=== PATIENT | female | born 1980 | race Caucasian/White ===

== ENCOUNTER 2016-12-16 14:39 | Emergency (ER) | payer OTHER ==
[~2016-12-16] VITALS: Wt 61.0 kg
[2016-12-16] MEDS ORDERED: TRAM50TA2 PO (17:56)
--- NOTE | 2016-12-16 17:56 | RADRPT ---
PROCEDURE: XR Left Ankle. CLINICAL INDICATION: Left ankle pain. TECHNIQUE: 3 views. Frontal, lateral, and oblique. COMPARISON: None. FINDINGS: There is no fracture or dislocation. The soft tissues are normal. Articular surfaces are intact. There is no lytic or blastic lesion. There is no radiopaque foreign body. IMPRESSION: 1. Normal images of the left ankle. RPTAT: QQ .Hans Rico MD, MD Date Time Electronically viewed and signed by .Hans Rico MD, on 12/16/2016 17:56 .R/
--- NOTE | 2016-12-16 17:56 | RADRPT ---
PROCEDURE: XR Left Foot. CLINICAL INDICATION: Left foot pain. TECHNIQUE: Three views. Frontal, lateral, and oblique. COMPARISON: None. FINDINGS: There is no fracture or dislocation. The soft tissues are normal. Articular surfaces are intact. There is no lytic or blastic lesion. There is no radiopaque foreign body. IMPRESSION: 1. Normal images of the left foot. RPTAT: QQ .Hans Rico MD, MD Date Time Electronically viewed and signed by .Hans Rico MD, on 12/16/2016 17:56 .R/
--- NOTE | 2016-12-16 18:11 | ERD ---
ER Documentation Chief Complaint Date/Time DATE: 12/16/16 TIME: 18:08 Chief Complaint LEFT ANKLE PAIN FROM 1 WK INJURY FROM FALL. NO RELEIF WITH OTC MEDS HPI [age]-year-old female with no significant past mental history presents the ED complaining of left ankle pain that started 1 week ago from a mechanical fall. Denies any head or neck injuries. Denies any loss of consciousness. States that she gets no relief from mtkn-[id number] medications. States that she has been taking ibuprofen without relief. Reports that she went to [facility] 4 days ago and obtained a x-ray and was positive for a fracture however was negative yesterday when she went back to all of you. ROS All systems reviewed and are negative except as per history of present illness. Medications Home Meds Active Scripts Tramadol HCl (Tramadol HCl) 50 Mg Tablet, 50 MG PO Q4 Y for PAIN, #20 TAB Prov:NIELS IVEY PA-C 12/16/16 PMhx/Soc Medical and Surgical Hx: pt denies Medical Hx, pt denies Surgical Hx Hx Alcohol Use: No Hx Substance Use: No Hx Tobacco Use: No Physical Exam Vitals Vital Signs Date Time Temp Pulse Resp B/P Pulse Ox O2 Delivery O2 Flow Rate FiO2 12/16/16 14:43 98.9 100 20 122/78 98 Physical Exam Const: [id number], well-nourished. In no acute distress. Head: Atraumatic, normocephalic Eyes: Normal Conjunctiva without injection ENT: Normal external ear, nose and mouth. Neck: Full range of motion. No meningismus. Resp: Clear to auscultation bilaterally. No wheezing, rhonchi, rales, or crackles. No accessory muscle use. No retractions. Cardio: Regular rate and rhythm, no murmurs Skin: No petechiae or rashes Back: No midline tenderness. No CVA tenderness. Ext: No cyanosis, or edema. Cap refill less than 2 seconds. Distal pulses intact bilaterally. Tenderness palpation of the medial malleolus and inferior portion of the foot. No erythema, deformities, warmth to touch. Neur: Awake and alert. Normal gait and coordination. Muscle strength 5/5. Sensation intact bilaterally. Psych: Normal Mood and Affect Procedures/MDM This is a 36-year-old female with no significant past medical history presents the ED complaining of left ankle pain. Patient is afebrile and nontoxic- appearing. Patient has normal vital signs. A left ankle and foot x-ray was ordered to further evaluate patient. PROCEDURE: XR Left Ankle. CLINICAL INDICATION: Left ankle pain. TECHNIQUE: 3 views. Frontal, lateral, and oblique. COMPARISON: None. FINDINGS: There is no fracture or dislocation. The soft tissues are normal. Articular surfaces are intact. There is no lytic or blastic lesion. There is no radiopaque foreign body. IMPRESSION: 1. Normal images of the left ankle. PROCEDURE: XR Left Foot. CLINICAL INDICATION: Left foot pain. TECHNIQUE: Three views. Frontal, lateral, and oblique. COMPARISON: None. FINDINGS: There is no fracture or dislocation. The soft tissues are normal. Articular surfaces are intact. There is no lytic or blastic lesion. There is no radiopaque foreign body. IMPRESSION: 1. Normal images of the left foot. Patient is placed in a Shamar wrap placement. Splint Assessment: Neurovascularly intact pre and post shamar wrap placement with good fit. Patient's extremity symptoms have stabilized while they have been evaluated in the department and are appropriate for outpatient follow up. No evidence of fractures, dislocations, compartment syndrome, neurologic injury, vascular injury, open joint, open fracture, tendon laceration, septic arthritis, osteomyelitis, DVT, foreign body, or other emergent conditions. Discharge medications: Ibuprofen Follow up with primary care physician in 1-2 days. Instructed patient to return to the ED sooner for any worsening symptoms. Patient's questions were answered. Patient understood and agreed with discharge plan. Patient discharged stable. Departure Diagnosis: Primary Impression: Ankle pain Laterality: left Chronicity: unspecified Qualified Code: M25.572 - Left ankle pain, unspecified chronicity Condition: Stable Patient Instructions: Sprain, Ankle, With X-Ray Referrals: [facility] YOU HAVE RECEIVED A MEDICAL SCREENING EXAM AND THE RESULTS INDICATE THAT YOU DO NOT HAVE A CONDITION THAT REQUIRES URGENT TREATMENT IN THE EMERGENCY DEPARTMENT. FURTHER EVALUATION AND TREATMENT OF YOUR CONDITION CAN WAIT UNTIL YOU ARE SEEN IN YOUR DOCTORS OFFICE WITHIN THE NEXT 1-2 DAYS. IT IS YOUR RESPONSIBILITY TO MAKE AN APPOINTMENT FOR FOLOW-UP CARE. IF YOU HAVE A PRIMARY DOCTOR --you should call your primary doctor and schedule an appointment IF YOU DO NOT HAVE A PRIMARY DOCTOR YOU CAN CALL OUR PHYSICIAN REFERRAL HOTLINE AT IF YOU CAN NOT AFFORD TO SEE A PHYSICIAN YOU CAN CHOSE FROM THE FOLLOWING [facility] [address] [facility] [address] [facility] [address] [facility] [address] [facility] [address] [facility]. [facility] [address] [facility] [facility] YOU HAVE RECEIVED A MEDICAL SCREENING EXAM AND THE RESULTS INDICATE THAT YOU DO NOT HAVE A CONDITION THAT REQUIRES URGENT TREATMENT IN THE EMERGENCY DEPARTMENT. FURTHER EVALUATION AND TREATMENT OF YOUR CONDITION CAN WAIT UNTIL YOU ARE SEEN IN YOUR DOCTORS OFFICE WITHIN THE NEXT 1-2 DAYS. IT IS YOUR RESPONSIBILITY TO MAKE AN APPOINTMENT FOR FOLOW-UP CARE. IF YOU HAVE A PRIMARY DOCTOR --you should call your primary doctor and schedule and appointment IF YOU DO NOT HAVE A PRIMARY DOCTOR YOU CAN CALL OUR PHYSICIAN REFERRAL HOTLINE AT . IF YOU CAN NOT AFFORD TO SEE A PHYSICIAN YOU CAN CHOSE FROM THE FOLLOWING [facility]: [facility] [address] [place] [address] [facility] [address] [place] [address] [facility] [address] [place] [address] [facility] Urgent Care 7 a.m.- 11 p.m. Every Day of the Week NO APPOINTMENT OR AUTHORIZATION NEEDED SO [facility] Hours: Mon-Fri 9:00 AM - 5:00 PM Additional Instructions: FOLLOW UP WITH YOUR PRIMARY CARE PHYSICIAN TOMORROW for a referral to orthopedic physician.Return to this facility if you are not improving as expected. NIELS IVEY PA-C Dec 16, 2016 18:10
[2016-12-16 18:34] VITALS: BP 120/76; PULSE 78; RESP 20; TEMP 98.9
== END 2016-12-16 18:40 | disposition home or self-care (01) ==
LOC: FTE 14:39
DX: S99.912A Unspecified injury of left ankle, initial encounter (principal); W18.39XA Other fall on same level, initial encounter; Y92.9 Unspecified place or not applicable
CPT/HCPCS: 73610; 73630; Z7502

== ENCOUNTER 2017-01-09 07:26 | Emergency (ER) | payer OTHER ==
[~2017-01-09] VITALS: Ht 170.2 cm; Wt 59.0 kg
[~2017-01-09 07:26] MED LIST: TRAM50TA2 PO
[2017-01-09 07:29] VITALS: Ht 170.2 cm; Wt 59.0 kg
--- NOTE | 2017-01-09 07:53 | ERD ---
ER Documentation Chief Complaint Date/Time DATE: 01/09/17 TIME: 07:48 Chief Complaint right knee pain/injury HPI This is a 36-year-old female presenting to the emergency department for right knee pain 2 days. Patient states yesterday she was skateboarding and fell twisting her right leg. No audible pop. Patient states she is having severe pain 10/10. Pain is nonradiating. No swelling, laceration or skin changes. No calf tenderness. Patient unable to bear weight due to pain. Patient took ibuprofen about 3 hours prior to arrival. ROS All systems reviewed and are negative except as per history of present illness. Medications Home Meds Active Scripts Ibuprofen* (Motrin*) 400 Mg Tab, 400 MG PO Q6, #15 TAB Prov:BINDU SPENCE NP 01/09/17 Hydrocodone/Acetaminophen ([place] 5-325 Tablet) 1 Each Tablet, 1 TAB PO Q6H Y for PAIN, #7 TAB Prov:BINDU SPENCE NP 01/09/17 Tramadol HCl (Tramadol HCl) 50 Mg Tablet, 50 MG PO Q4 Y for PAIN, #20 TAB Prov:NIELS IVEY PA-C 12/16/16 Allergies Allergies: Coded Allergies: ciprofloxacin (Verified Allergy, Mild, rash, 01/09/17) PMhx/Soc History of Surgery: No Anesthesia Reaction: No Hx Neurological Disorder: No Hx Respiratory Disorders: No Hx Cardiac Disorders: Yes (HTN) Hx Psychiatric Problems: No Hx Miscellaneous Medical Probl: No Hx Alcohol Use: Yes Hx Substance Use: No Hx Tobacco Use: Yes Smoking Status: Current every day smoker Physical Exam Vitals Vital Signs Date Time Temp Pulse Resp B/P Pulse Ox O2 Delivery O2 Flow Rate FiO2 01/09/17 07:29 98.5 104 19 130/81 96 Physical Exam Const: no acute distress, alert Head: Atraumatic Eyes: Normal Conjunctiva ENT: Normal External Ears, Nose and Mouth. Neck: Full range of motion..~ No meningismus. Resp: Clear to auscultation bilaterally Cardio: Regular rate and rhythm, no murmurs Abd: Soft, non tender, non distended. Normal bowel sounds Skin: No petechiae or rashes Back: No midline or flank tenderness Ext: No cyanosis, or edema. limited range of motion to right knee. sensation fully intact. no calf tenderness. Neur: Awake and alert Psych: Normal Mood and Affect Results 24 hrs Current Medications Medications (Trade) Dose Ordered Sig/Jill Route PRN Reason Start Time Stop Time Status Last Admin Dose Admin Acetaminophen/ Hydrocodone Bitart ([place] (5/325)) 1 tab ONCE ONCE PO 01/09/17 08:00 01/09/17 08:01 DC 01/09/17 07:52 Procedures/MDM ED COURSE: The patient was stable throughout ED course. I kept the patient and/or family informed of laboratory and diagnostic imaging results throughout the ED course. Imaging XR right knee Patient: KIM ROCHA : 1980 Age: 36 Sex: F MR #: [id number] DOS: 01/09/17 0746 Ordering MD: BINDU SPENCE NP Location: E Room/Bed: PROCEDURE: XR Knee. CLINICAL INDICATION: Right knee pain. TECHNIQUE: 3 views of the right knee were obtained. The images reviewed on a PACS workstation. COMPARISON: None. FINDINGS: The bones appear intact, with no evidence of fracture, erosion, demineralization , or dislocation. The alignment of the femorotibial and patellofemoral joints appears normal. No joint space narrowing is seen. No evidence of effusion. No soft tissue swelling is present. IMPRESSION: Unremarkable examination of the right knee. MDM: 36-year-old female presents to emergency department for right knee pain after fall yesterday while skateboarding. Patient states she is having severe pain rating 10/10 to right knee. No swelling or ecchymosis. Limited range of motion to right knee on physical exam. Patient unable to bear weight due to pain. Patient was given [place] in the ED. No fevers or chills. Remains hematologically stable. X-ray right knee reviewed by radiologist as unremarkable. Low suspicion for acute dislocation, fracture osteomyelitis or compartment syndrome. Patient is appropriate for outpatient management will be given prescription for [place] and ibuprofen. Instructed patient to follow-up with primary care provider or orthopedic physician for reassessment and additional management. CD report provided to patient. Return to ED for any high fever, chest pain, difficulty breathing, shortness breath, wheezing, vomiting, diarrhea, abdominal pain or any new or worsening symptoms. Patient verbalizes understanding. All questions answered at discharge. Departure Diagnosis: Primary Impression: Knee injury Encounter type: initial encounter Laterality: right Qualified Code: S89.91XA - Knee injury, right, initial encounter Condition: Stable BINDU SPENCE NP Jan 09, 2017 07:53
[2017-01-09] MEDS ORDERED: HYDROCODONE/APAP (5/325) TAB PO ONE (08:00)
--- NOTE | 2017-01-09 09:13 | RADRPT ---
PROCEDURE: XR Knee. CLINICAL INDICATION: Right knee pain. TECHNIQUE: 3 views of the right knee were obtained. The images reviewed on a PACS workstation. COMPARISON: None. FINDINGS: The bones appear intact, with no evidence of fracture, erosion, demineralization, or dislocation. Th e alignment of the femorotibial and patellofemoral joints appears normal. No joint space narrowing i s seen. No evidence of effusion. No soft tissue swelling is present. IMPRESSION: Unremarkable examination of the right knee. RPTAT: HPNM Physician John Date Time Electronically viewed and signed by Physician John on 01/09/2017 09:12 /
[2017-01-09] MEDS ORDERED: HYDR-906 PO (09:26)
[2017-01-09] MEDS ORDERED: IBUP400T22 PO (09:26)
== END 2017-01-09 09:59 | disposition home or self-care (01) ==
LOC: FTE 07:26
DX: S89.91XA Unspecified injury of right lower leg, initial encounter (principal); I10 Essential (primary) hypertension; F17.210 Nicotine dependence, cigarettes, uncomplicated; V00.131A Fall from skateboard, initial encounter; Y92.9 Unspecified place or not applicable
CPT/HCPCS: 29505; 73562; Z7502; Z7610

== ENCOUNTER 2017-01-14 14:41 | Emergency (ER) | payer OTHER ==
[~2017-01-14] VITALS: Ht 160 cm; Wt 60.0 kg
[~2017-01-14 14:41] MED LIST changes: +HYDR-906 PO; +IBUP400T22 PO
[2017-01-14 14:43] VITALS: Ht 160 cm; Wt 60.0 kg
[2017-01-14] MEDS ORDERED: HYDR-906 PO (14:56)
--- NOTE | 2017-01-14 14:56 | ERD ---
ER Documentation Chief Complaint Date/Time DATE: 01/14/17 Chief Complaint Medication Refill HPI The patient is a 36-year-old female who presents the Emergency Department with complaint of right knee pain, requesting medication refill. The patient reports that on 01/08/2016 she was skateboarding, when he fell, twisting her right knee. She felt her right knee buckled, and give out on her. Since, she has developed significant swelling and pain to the right knee. She presented to the Emergency Department on 01/09/2017 for evaluation, at which time x-ray imaging was performed, which revealed no evidence of fracture, dislocation or subluxation. The patient was placed in a knee immobilizer, and discharged home, and advised to follow-up with her primary medical provider for further evaluation and management. Additionally, she was given a prescription for [place] and ibuprofen, which she has been taking as directed. She does report, however, that she was only given 7 tablets of [place], and she has since finished the medication. She called to make a follow-up appointment with her primary medical provider (as advised), but was not given an appointment until 3 weeks from now. Therefore, she presents today requesting a prescription for additional pain medication until she can be seen by her primary medical provider. She notes that upon walking without immobilizer she feels as if her knee continuously locks, and has pain with extension and range of motion. She denies any numbness , paresthesias or weakness of the distal extremity. Denies any restricted range of motion. Denies swelling or calf tenderness. She rates her current pain as 5 out of 10, though notes that she has not yet taken any medication for pain. ROS All systems reviewed and are negative except as per history of present illness. Medications Home Meds Active Scripts Ibuprofen* (Motrin*) 600 Mg Tab, 600 MG PO Q6, #30 TAB Prov:ENRKIE CARPENTER PA-C 01/14/17 Hydrocodone/Acetaminophen ([place] 5-325 Tablet) 1 Each Tablet, 1 EACH PO Q6, #12 TAB Prov:ENRIKE CARPENTER PA-C 01/14/17 Ibuprofen* (Motrin*) 400 Mg Tab, 400 MG PO Q6, #15 TAB Prov:BINDU SPENCE NP 01/09/17 Hydrocodone/Acetaminophen ([place] 5-325 Tablet) 1 Each Tablet, 1 TAB PO Q6H Y for PAIN, #7 TAB Prov:BINDU SPENCE POLO 01/09/17 Tramadol HCl (Tramadol HCl) 50 Mg Tablet, 50 MG PO Q4 Y for PAIN, #20 TAB Prov:NIELS IVEY PA-C 12/16/16 Allergies Allergies: Coded Allergies: ciprofloxacin (Verified Allergy, Mild, rash, 01/09/17) PMhx/Soc History of Surgery: No Anesthesia Reaction: No Hx Neurological Disorder: No Hx Respiratory Disorders: No Hx Cardiac Disorders: Yes (HTN) Hx Psychiatric Problems: No Hx Miscellaneous Medical Probl: No Hx Alcohol Use: Yes Hx Substance Use: No Hx Tobacco Use: Yes Physical Exam Vitals Vital Signs Date Time Temp Pulse Resp B/P Pulse Ox O2 Delivery O2 Flow Rate FiO2 01/14/17 14:43 98.1 66 20 110/66 Physical Exam GENERAL: Well-developed, well-nourished, female, in no acute distress HEENT: Head is normocephalic, atraumatic. No scleral pallor or icterus. Conjunctiva pink. Moist mucous membranes. NECK: Supple. RESPIRATORY: Lungs are clear to auscultation bilaterally. Equal breath sounds. Normal expiratory effort. CARDIOVASCULAR: Regular rate and rhythm. S1 and S2 normal. BACK: No midline tenderness. EXTREMITIES: No clubbing or cyanosis. Normal skin perfusion. Swelling to the right knee. Moderate tenderness to palpation at medial joint line of right knee. Normal flexion of the right knee. Pain with full extension of the right knee. Increased discomfort with with plantarflexion but not dorsiflexion. No crepitus appreciated. No gross deformities. No focal swelling or erythema. No prepatellar effusion. Negative Keo test. Negative anterior drawer test. Positive Ryan maneuver. No increased laxity with varus or valgus stress applied. No distal tib/fib tenderness. DP/PT pulses 2+. Capillary refill is less than 2 seconds. Muscle tone is normal. Compartments are soft. No abnormal bony prominences. Distal neurovascular status intact. No foot drop. No calf swelling or calf tenderness. NEUROLOGIC: The patient is alert, awake, and oriented x 3. No focal neurologic deficits. Motor and sensation grossly intact. INTEGUMENT: Skin is intact. Warm and dry. PSYCHIATRIC: Cooperative. Procedures/MDM This is a 36-year-old female presenting to the Emergency Department right knee pain s/p skateboarding injury, presenting to the ED requesting medication refill. The patient had tenderness to palpation over the medial joint line of the right knee on physical examination, and had increased discomfort upon extending her knee. She had a positive Ryan test on physical examination. Otherwise, no focal erythema. No gross deformities. Distal neurovascular status was intact, with 2+ peripheral pulses and normal capillary refill. The differential diagnosis includes, but is not limited to, septic joint, gout, arthritis, fracture, dislocation, sprain, strain, contusion, tendinitis, ligament injury, meniscal injury, malignancy. She had no calf swelling or calf tenderness, no findings to suggest DVT. No focal warmth or erythema, no restricted range of motion, fevers, constitutional symptoms, or findings to suggest septic joint. Patient presentation not consistent with gout or inflammatory arthritis. No acute abnormalities were noted on x-ray performed. There is currently no clinical evidence of fracture, dislocation, subluxation or any other emergent medical condition. After rest, the patient reports no new complaints, and decreased pain. Upon my review and interpretation of the patient's presentation and overall ER course, I believe the patient's symptoms are most consistent with right knee pain, likely internal derangement of the right knee. It is possible the patient has an underlying meniscal injury, however patient will need further outpatient evaluation and likely MRI to diagnose this condition. At this time the patient is in stable condition, and therefore she can be discharged home with prescription for [place] and Ibuprofen and given strict return precautions for signs of deteriorating or worsening condition. She is advised to follow-up with her primary care provider for reevaluation and further management within the next 2-3 days or return to the ER sooner for any new or worsening symptoms. I shared my medical decision making and plan with the patient at length and in great detail, and she verbally understands and agrees with the plan for further observation and care as an outpatient. At the time of discharge all questions were answered. Departure Diagnosis: Primary Impression: Encounter for medication refill Additional Impression: Right knee pain Chronicity: acute Qualified Code: M25.561 - Acute pain of right knee Condition: Stable Patient Instructions: Knee Pain, Meniscus Injury (Possible), Reducing Knee Pain and Swelling, Taking Medicine Safely Additional Instructions: Follow up with your primary medical provider in 2-3 days for reevaluation and further management. It is important that you follow up with an oil program compliance specialist as well. Return to the ED sooner for any new or worsening symptoms. ENRIKE CARPENTER PA-C Jan 14, 2017 14:56
[2017-01-14] MEDS ORDERED: IBUP-1542 PO (14:57)
== END 2017-01-14 14:56 | disposition home or self-care (01) ==
LOC: E/R 14:41
DX: Z76.0 Encounter for issue of repeat prescription (principal); M25.561 Pain in right knee; I10 Essential (primary) hypertension; Z87.891 Personal history of nicotine dependence
CPT/HCPCS: 99281

== ENCOUNTER 2017-04-09 08:53 | Emergency (ER) | payer OTHER ==
[~2017-04-09] VITALS: Ht 170.2 cm; Wt 53.2 kg
[~2017-04-09 08:53] MED LIST changes: +IBUP-1542 PO
[2017-04-09 08:57] VITALS: Ht 170.2 cm; Wt 53.2 kg
[2017-04-09] MEDS ORDERED: ONDANSETRON 4 MG INJ IV STA (09:07)
[2017-04-09] MEDS ORDERED: morphine 4 MG/ML VIAL IV STA (09:07)
[2017-04-09] MEDS ORDERED: SOD CHLORIDE 0.9% 1,000 ML IV STA (09:07)
[2017-04-09 09:48] LABS: ADD SCAN DIFF NO
[2017-04-09 09:57] LABS: BASOPHILS % 0.4 % (0.0-2.0); EOSINOPHILS % 0.2 % (0.0-7.0); HEMATOCRIT 40.1 % (37.0-47.0); HEMOGLOBIN 13.7 g/dl (12.0-16.0); LYMPHOCYTES # 1.7 10^3/ul (0.8-2.9); LYMPHOCYTES % 14.7 % (15.0-51.0); MEAN CORPUSCULAR HEMOGLOBIN 33.8 pg (29.0-33.0); MEAN CORPUSCULAR HGB CONC 34.2 g/dl (32.0-37.0); MEAN PLATELET VOLUME 11.5 fl (7.4-10.4); MONOCYTE # 0.8 10^3/ul (0.3-0.9); MONOCYTES % 7.3 % (0.0-11.0); NEUTROPHIL # 8.7 10^3/ul (1.6-7.5); NEUTROPHILS % 76.6 % (39.0-77.0); PLATELET COUNT 246 10^3/UL (140-415); RED BLOOD COUNT 4.05 10^6/ul (4.20-5.40); RED CELL DISTRIBUTION WIDTH 12.1 % (11.5-14.5); WHITE BLOOD COUNT 11.4 10^3/ul (4.8-10.8)
[2017-04-09 10:10] LABS: ALBUMIN 4.7 g/dl (3.3-4.9); ALBUMIN/GLOBULIN RATIO 1.46; BILIRUBIN,INDIRECT 0.8 mg/dl (0-1.1); BILIRUBIN,TOTAL 0.8 mg/dl (0.2-1.3); CALCIUM 9.5 mg/dl (8.4-10.2); CREATININE 0.66 mg/dl (0.44-1.00); POTASSIUM 3.3 mmol/L (3.5-5.1); TOTAL PROTEIN 7.9 g/dl (6.1-8.1)
[2017-04-09 10:22] LABS: ADD UMIC YES; UR ASCORBIC ACID NEGATIVE (NEGATIVE); UR BACTERIA MODERATE /HPF (NONE SEEN); UR BILIRUBIN (Dip) NEGATIVE (NEGATIVE); UR BLOOD (Dip) 1+ mg/dL (NEGATIVE); UR CLARITY CLOUDY (CLEAR); UR COLOR AMBER (YELLOW); UR GLUCOSE (Dip) NEGATIVE (NEGATIVE); UR KETONES (Dip) 1+ mg/dL (NEGATIVE); UR LEUKOCYTE ESTERASE (Dip) 2+ Leu/ul (NEGATIVE); UR MUCUS MANY /HPF (NONE SEEN); UR NITRITE (Dip) POSITIVE (NEGATIVE); UR RBC 13 /HPF (0-5); UR SPECIFIC GRAVITY (Dip) 1.018 (1.003-1.030); UR SQUAMOUS EPITHELIAL CELL FEW /HPF (FEW); UR TOTAL PROTEIN (Dip) 2+ mg/dl (NEGATIVE); UR UROBILINOGEN (Dip) 1+ mg/dL (NEGATIVE)
[2017-04-09] MEDS ORDERED: HYDROmorphONE 1 MG/ML SYG IV STA (10:44)
[2017-04-09] MEDS ORDERED: CEFEPIME 1GM/50 ML (PMX) 50 ML IVPB ONE (11:00)
[2017-04-09 11:05] VITALS: BP 111/62; PULSE 70; RESP 19; TEMP 98
[2017-04-09] MEDS ORDERED: CEPH500C PO (11:34)
[2017-04-09] MEDS ORDERED: ONDA4TAB14 PO (11:34)
[2017-04-09] MEDS ORDERED: FLUC150T17 PO (11:34)
[2017-04-09] MEDS ORDERED: NAPR-688 PO (11:34)
[2017-04-09] MEDS ORDERED: NITR-58 PO (11:34)
[2017-04-09] MEDS ORDERED: OXYC-279 PO (11:34)
--- NOTE | 2017-04-09 11:45 | ERD ---
ER Documentation Chief Complaint Date/Time DATE: 04/09/17 TIME: 11:36 Chief Complaint R.Side flank pain with "Strong urine smell" x 5 days HPI This 36-year-old female presents for right-sided flank pain and foul-smelling urine for the last 5 days. She does have a history of UTIs. She has had some nausea as well. Has had chills with no fevers. Is otherwise healthy. ROS All systems reviewed and are negative except as per history of present illness. Medications Home Meds Active Scripts Oxycodone HCl/Acetaminophen (Percocet 5-325 mg Tablet) 1 Each Tablet, 1 EACH PO Q6, #20 TAB Prov:VERONIKA ROBERTS 04/09/17 Ondansetron (Ondansetron Odt) 4 Mg Tab.rapdis, 4 MG PO Q6H Y for NAUSEA AND/OR VOMITING, #10 TAB Prov:VERONIKA ROBERTS 04/09/17 Fluconazole* (Diflucan*) 150 Mg Tablet, 150 MG PO ONCE, #1 TAB Prov:JALEN ROBERTSSHUA 04/09/17 Naproxen* (Naproxen*) 500 Mg Tablet, 500 MG PO BID Y for PAIN, #20 TAB Prov:JALEN ROBERTSSHUA 04/09/17 Cephalexin* (Cephalexin*) 500 Mg Capsule, 500 MG PO Q8, #30 CAP Prov:JALEN ROBERTSSHUA 04/09/17 Nitrofurantoin Monohyd Macrocr* (Macrobid*) 100 Mg Capsr, 100 MG PO BID, #20 CAP Prov:VERONIKA ROBERTS 04/09/17 Discontinued Scripts Ibuprofen* (Motrin*) 600 Mg Tab, 600 MG PO Q6, #30 TAB Prov:ENRIKE CARPENTER PA-C 01/14/17 Hydrocodone/Acetaminophen (Gordon 5-325 Tablet) 1 Each Tablet, 1 EACH PO Q6, #12 TAB Prov:ENRIKE CARPENTER PA-C 01/14/17 Ibuprofen* (Motrin*) 400 Mg Tab, 400 MG PO Q6, #15 TAB Prov:BINDU SPENCE NP 01/09/17 Hydrocodone/Acetaminophen (Gordon 5-325 Tablet) 1 Each Tablet, 1 TAB PO Q6H Y for PAIN, #7 TAB Prov:BINDU SPENCE NP 01/09/17 Tramadol HCl (Tramadol HCl) 50 Mg Tablet, 50 MG PO Q4 Y for PAIN, #20 TAB Prov:NIELS IVEY PA-C 12/16/16 Allergies Allergies: Coded Allergies: ciprofloxacin (Verified Allergy, Mild, rash, 04/09/17) PMhx/Soc History of Surgery: No Anesthesia Reaction: No Hx Neurological Disorder: No Hx Respiratory Disorders: No Hx Cardiac Disorders: Yes (HTN) Hx Psychiatric Problems: No Hx Miscellaneous Medical Probl: No Hx Alcohol Use: Yes Hx Substance Use: No Hx Tobacco Use: Yes Smoking Status: Current every day smoker Physical Exam Vitals Vital Signs Date Time Temp Pulse Resp B/P Pulse Ox O2 Delivery O2 Flow Rate FiO2 04/09/17 11:05 98.0 70 19 111/62 100 Room Air 04/09/17 08:57 96.7 116 18 110/76 99 Physical Exam Const: [] Mild distress Head: Atraumatic Eyes: Normal Conjunctiva ENT: Normal External Ears, Nose and Mouth. Neck: Full range of motion..~ No meningismus. Resp: Clear to auscultation bilaterally Cardio: Regular rate and rhythm, no murmurs Abd: Soft, non tender, non distended. Normal bowel sounds Skin: No petechiae or rashes Ext: No cyanosis, or edema Neur: Awake and alert and oriented 3, no focal deficits Psych: Normal Mood and Affect Result Diagram: 04/09/17 0900 04/09/17 0900 Results 24 hrs Laboratory Tests Test 04/09/17 09:00 04/09/17 09:10 White Blood Count 11.410^3/ul Red Blood Count 4.0510^6/ul Hemoglobin 13.7g/dl Hematocrit 40.1% Mean Corpuscular Volume 99.0fl Mean Corpuscular Hemoglobin 33.8pg Mean Corpuscular Hemoglobin Concent 34.2g/dl Red Cell Distribution Width 12.1% Platelet Count 38251^3/UL Mean Platelet Volume 11.5fl Neutrophils % 76.6% Lymphocytes % 14.7% Monocytes % 7.3% Eosinophils % 0.2% Basophils % 0.4% Nucleated Red Blood Cells % 0.0/100WBC Neutrophils # 8.710^3/ul Lymphocytes # 1.710^3/ul Monocytes # 0.810^3/ul Eosinophils # 0.010^3/ul Basophils # 0.010^3/ul Nucleated Red Blood Cells # 0.010^3/ul Sodium Level 134mmol/L Potassium Level 3.3mmol/L Chloride Level 98mmol/L Carbon Dioxide Level 26mmol/L Anion Gap 13 Blood Urea Nitrogen 5mg/dl Creatinine 0.66mg/dl Glucose Level 106mg/dl Calcium Level 9.5mg/dl Total Bilirubin 0.8mg/dl Direct Bilirubin 0.00mg/dl Indirect Bilirubin 0.8mg/dl Aspartate Amino Transf (AST/SGOT) 25IU/L Alanine Aminotransferase (ALT/SGPT) 22IU/L Alkaline Phosphatase 91IU/L Total Protein 7.9g/dl Albumin 4.7g/dl Globulin 3.20g/dl Albumin/Globulin Ratio 1.46 Lipase 32U/L Urine Color GRIFFIN Urine Clarity CLOUDY Urine pH 6.0 Urine Specific Sparks 1.018 Urine Ketones 1+mg/dL Urine Nitrite POSITIVEmg/dL Urine Bilirubin NEGATIVEmg/dL Urine Urobilinogen 1+mg/dL Urine Leukocyte Esterase 2+Leandor/ul Urine Microscopic RBC 13/HPF Urine Microscopic WBC > 182/HPF Urine Squamous Epithelial Cells FEW/HPF Urine Bacteria MODERATE/HPF Urine Mucus MANY/HPF Urine Hemoglobin 1+mg/dL Urine Glucose NEGATIVEmg/dL Urine Total Protein 2+mg/dl Current Medications Medications (Trade) Dose Ordered Sig/Jill Route PRN Reason Start Time Stop Time Status Last Admin Dose Admin Sodium Chloride (NS) 1,000 ml @ 1,000 mls/hr Q1H STAT IV 04/09/17 09:07 04/09/17 10:06 DC 04/09/17 09:22 Morphine Sulfate (morphine) 4 mg ONCE STAT IV 04/09/17 09:07 04/09/17 09:09 DC 04/09/17 09:21 Ondansetron HCl (Zofran Inj) 4 mg ONCE STAT IV 04/09/17 09:07 04/09/17 09:09 DC 04/09/17 09:21 Hydromorphone HCl 0.5 mg 0.5 mg ONCE STAT IV 04/09/17 10:44 04/09/17 10:45 DC 04/09/17 10:55 Cefepime HCl (Maxipime 1gm/50 ml (Pmx)) 50 ml @ 100 mls/hr ONCE ONCE IVPB 04/09/17 11:00 04/09/17 11:29 DC 04/09/17 10:56 Procedures/MDM Pyelonephritis and otherwise healthy female. She was given a liter of normal saline, morphine IV, Zofran, a gram of cefepime in the emergency room. Pain was well controlled. She was tachycardic on arrival she is definitely stable for outpatient management of her prefer to be treated as an outpatient. I am going to discharge her with 10 days of Macrobid and Keflex as she is allergic to Cipro, also discharging with naproxen and Percocet for different levels of pain. Muscle going to give her Zofran ODT for any nausea so that she can take her medications and I am giving her a Diflucan tablet case she develops a yeast infection after prolonged antibiotic use. Return precautions to the ER also given. Departure Diagnosis: Primary Impression: Pyelonephritis Condition: Stable Patient Instructions: Pyelonephritis, Female (Adult) Referrals: [facility] YOU HAVE RECEIVED A MEDICAL SCREENING EXAM AND THE RESULTS INDICATE THAT YOU DO NOT HAVE A CONDITION THAT REQUIRES URGENT TREATMENT IN THE EMERGENCY DEPARTMENT. FURTHER EVALUATION AND TREATMENT OF YOUR CONDITION CAN WAIT UNTIL YOU ARE SEEN IN YOUR DOCTORS OFFICE WITHIN THE NEXT 1-2 DAYS. IT IS YOUR RESPONSIBILITY TO MAKE AN APPOINTMENT FOR FOLOW-UP CARE. IF YOU HAVE A PRIMARY DOCTOR --you should call your primary doctor and schedule an appointment IF YOU DO NOT HAVE A PRIMARY DOCTOR YOU CAN CALL OUR PHYSICIAN REFERRAL HOTLINE AT IF YOU CAN NOT AFFORD TO SEE A PHYSICIAN YOU CAN CHOSE FROM THE FOLLOWING [facility] [address] [facility] [address] [facility] [facility] [address] [facility] [address] [facility] [address] [facility]. [facility]. [address] Additional Instructions: Call your primary care doctor TOMORROW for an appointment during the next 2-3 days.See the doctor sooner or return here if your condition worsens before your appointment time. VERONIKA ROBERTS DO Apr 09, 2017 11:45
[2017-04-09] MEDS ORDERED: AMIODARONE 900 MG in DEXTROSE 5% 482 ML IV SCH (12:30)
== END 2017-04-09 12:35 | disposition home or self-care (01) ==
LOC: E/R 08:53
DX: N12 Tubulo-interstitial nephritis, not specified as acute or chronic (principal); R11.0 Nausea; I10 Essential (primary) hypertension; F17.210 Nicotine dependence, cigarettes, uncomplicated
CPT/HCPCS: 36415; 80053; 81001; 83690; 85025; 96374; 96375; J0282; J0692; J1170; J2270; J2405; J7030; J7060; Z7502

== ENCOUNTER 2018-03-27 13:07 | Emergency (ER) | END 2018-03-27 14:42 | disposition home or self-care (01) ==